=== PATIENT | female | born 1965 | race Caucasian/White ===

== ENCOUNTER 2016-08-03 08:48 | Inpatient (IN) | payer MEDICARE, OTHER ==
--- NOTE | ~2016-08-03 | DS ---
Unit #: [id number] #: [id number] Patient: TANGELA AUSTIN [id number] [address] [place], [place] [address] [id number] MR#: [id number] NAME: TANGELA AUSTIN ROOM: 453 Age: 50 Sex: F Admission Date: 08/03/2016 : 1965 Discharge Date: 08/06/2016 Attending Physician: Nayeli Penny M.D. Primary Care Physician: Gaston Good M.D. DISCHARGE SUMMARY CHIEF COMPLAINT Right ankle pain. HISTORY OF PRESENT ILLNESS The patient is a 50-year-old female with a history of Kristie's granulomatosis. She fell two years ago while standing and sustained an open right ankle fracture. She was initially treated at [facility] with external fixation, joint debridement, eventual open reduction internal fixation and eventual hardware removal. She has now developed a valgus deformity with end stage ankle arthritis. The patient is narcotic dependent and uses hydrocodone 10 mg p.o. q.i.d. She has a son who is a heroin addict. Radiographs show end stage arthritis with 20 degrees of tibiotalar valgus. She is, therefore, to undergo right ankle fusion, screw removal. HOSPITAL COURSE The patient was taken to the operating room on the date of admission where she underwent right ankle fusion. There were no operative complications. Postoperatively, the patient had significant difficulty with pain control. The patient could not maintain her oxygen saturation but yet was still depending IV Dilaudid which we gave her very sparingly. Dressing was changed on the second postoperative day. She was seen by physical therapy on a daily basis and instructed on how to remain non-weight bearing on her affected side. She was concerned that she was not going to be able to go home. We, therefore, arranged for her to be placed in rehab. FINAL DIAGNOSES 1. Right ankle posttraumatic degenerative arthritis. 2. Kristie's granulomatosis. 3. Narcotic dependency. DISPOSITION/RECOMMENDATIONS 1. The patient is discharged to rehab. She will continue occupational and physical therapy. She will remain strictly non-weight bearing on the right leg for a total of three months. 2. Keep the right leg dressing clean, dry and intact. There is no need to change the dressing unless directed by Dr. Penny. If she wishes to change the dressing, please call Dr. Penny at [phone] to get instructions. 3. Continue ice and elevation of the right leg. DISCHARGE MEDICATIONS 1. Ventolin one puff q.4 hours p.r.n. shortness of breath. 2. Arixtra 7.5 mg p.o. daily. Unit #: [id number] #: [id number] Patient: TANGELA AUSITN 3. Gabapentin 600 mg p.o. t.i.d. 4. Celexa 20 mg p.o. q. h.s. 5. Cymbalta 60 mg p.o. q. h.s. 6. Phenergan 25 mg p.o. q.6 hours p.r.n. nausea. 7. Ambien 10 mg p.o. q. h.s. p.r.n. insomnia. 8. Percocet 10/325, one or two p.o. q.6 hours p.r.n. pain. 9. Protonix 40 mg p.o. q. h.s. 10. Calcium, two tabs p.o. q. h.s. 11. Potassium chloride 20 mEq p.o. q. h.s. 12. Tizanidine 8 mg p.o. q.i.d. 13. Norvasc 5 mg p.o. q. h.s. 14. Metoprolol 50 mg p.o. q. h.s. 15. Sumatriptan 6 mg p.o. p.r.n. migraine headache. 16. Iron sulfate, one tab p.o. q. h.s. Follow up in my office in 10 to 14 days. Call [phone] to confirm the appointment. Dictated byGabriela Tam/radha TD: 08/05/2016 08:45 JOB #: [id number] DISCHARGE SUMMARY X Viji Penny MD X DISCHARGE SUMMARY
--- NOTE | ~2016-08-03 | BMI ---
[facility] [place] Nutrition Therapy DATE: 08/04/16 Patient: TANGELA LUXLEY Physician: BELLE Address: [id number] [place] [address] Room/Bed: [address] [place] [address], Zip: [place] [address] Admit Date: 08/03/16 Date of : [birth year] Height: 5 3 Weight: 231 104.8 HIGH BMI NOTE: ANTHROPOMETRICS: HT: 63" WT: 104.8 KG BMI: 40.9 INTERVENTION: 1. REGULAR DIET RECOMMENDATIONS: 1. ADD HEART HEALTHY DIET RESTRICTION TO PROMOTE GRADUAL WEIGHT LOSS TOWARDS IBW. Respectfully, VIOLETTE GREENE RD, LD [facility] cc: client file
--- NOTE | ~2016-08-03 | HP ---
Unit #: [id number] #: [id number] Patient: TANGELA AUSTIN [id number] [address] [address] [id number] O MR#: [id number] NAME: TANGELA AUSTIN ROOM: Age: Sex: F Admission Date: 08/03/2016 : 1965 Attending Physician: Nayeli Penny M.D. Primary Care Physician: Gaston Good M.D. HISTORY AND PHYSICAL DATE OF ADMISSION 08/03/2016 CHIEF COMPLAINT Right ankle pain. HISTORY OF PRESENT ILLNESS This 50-year-old female with a history of Kristie granulomatosis fell two years ago while standing and she sustained an open right ankle fracture. She was treated at [facility] with external fixation, joint debridement, eventual open reduction internal fixation and hardware removal. The patient continues to have significant pain in the right foot and ankle. She has a valgus deformity. She has not responded to bracing and a cane. She uses hydrocodone 10 mg p.o. q.i.d. Radiographs show end-stage arthritis with 20 degrees of heel valgus. She is therefore to undergo right ankle fusion, screw removal and use of Augment platelet derived growth factor due to the fact that she cannot have proximal tibial bone graft. PAST MEDICAL HISTORY Remarkable for: 1. Kristie granulomatosis. 2. Anemia. 3. Anxiety. 4. Hypertension. 5. Cataracts. 6. Chronic deep venous thrombosis requiring Arixtra. 7. Chronic obstructive pulmonary disease. 8. Lumbar degenerative disk disease. 9. Depression. 10. Esophageal reflux. 11. Gout. 12. Hypercholesterolemia. 13. Insomnia. 14. Migraine headaches. 15. Possible rheumatoid arthritis. 16. Sleep apnea. PAST SURGICAL HISTORY 1. Cataract excision. 2. . 3. Cholecystectomy. 4. Gastric bypass. 5. Hand surgery. Unit #: [id number] #: [id number] Patient: TANGELA AUSTIN 6. Herniorrhaphy. 7. Lung surgery. 8. Nephrectomy. 9. Partial lung resection. 10. Shoulder surgery. 11. Tonsillectomy. 12. Tubal ligation. HOME MEDICATIONS 1. Amlodipine. 2. Aspirin. 3. Calcium. 4. Citalopram. 5. Cyclobenzaprine. 6. Duloxetine. 7. Iron sulfate. 8. Gabapentin. 9. Hydrocodone. 10. Metoprolol. 11. Multivitamins. 12. Pantoprazole. 13. Potassium chloride. 14. Promethazine. 15. Sumatriptan. 16. Tizanidine. 17. Ambien. ALLERGIES 1. Zofran. 2. Demerol. 3. Toradol. SOCIAL HISTORY The patient is a [id number]-jnhd smoker. She uses alcohol socially. FAMILY HISTORY Arthritis, stroke, hypertension, heart disease, Parkinson's, TB, breast cancer, colon cancer. PHYSICAL EXAMINATION GENERAL: This is an obese female in no acute distress. HEENT: Pharynx is clear. NECK: Supple without masses. HEART: Regular sinus rhythm without murmurs or gallops. LUNGS: Clear. ABDOMEN: Soft and nontender without masses or organomegaly. GAIT: The patient walks with a 4-prong cane. She wears slip-on shoes. RIGHT FOOT: Shows an intact arch but significant hindfoot valgus measuring 15 degrees. Right ankle dorsiflexion 5 degrees, plantar flexion 40 degrees. Subtalar motion is normal. First MTP joint motion is normal. Pulses are intact. Sensation is normal. Motor exam is normal. The patient is maximally tender over the anterior aspect of the tibiotalar joint. She has a well-healed transverse incision over the medial malleolus and a lateral longitudinal incision over the fibula. DIAGNOSTIC STUDIES IMAGING: Standing x-rays of the right ankle show 20 degrees of talar valgus with respect to the longitudinal axis of the tibia. The tibial Unit #: [id number] #: [id number] Patient: TANGELA AUSTIN is in marked valgus. There are two broken screws in the distal tibia which are oriented horizontal and parallel to the ankle joint line. There is a nonunion of the fibular shaft 13 cm above the level of the ankle joint. There is posterior subluxation of the talus under the tibia measuring 14 mm. ADMISSION DIAGNOSIS 1. Right ankle post-traumatic degenerative arthritis. 2. Right ankle valgus. 3. Right distal fibular shaft nonunion. 4. Retained broken right distal tibial screws. 5. Kristie granulomatosis. PLAN The patient has failed conservative care she will therefore undergo removal of hardware, ankle fusion, use of Augment bone graft and realignment of her hindfoot. This procedure was described along with the risks of bleeding, infection, nerve damage, need for further surgery in the future, prolonged recovery time, deep venous thrombosis, pulmonary embolism, anesthetic complications, nonunion, malunion. The patient is also advised she needs to stop smoking as it will complicate her healing process, possibly produce a nonunion or wound healing problems. She understands and states she will comply. Dictated by Nayeli Penny M.D. NIKITA/ming TD: 08/02/2016 18:32 JOB #: [id number] HISTORY AND PHYSICAL X Viji Penny MD HISTORY AND PHYSICAL
--- NOTE | ~2016-08-03 | OR ---
Unit #: [id number] #: [id number] Patient: TANGELA AUSTIN [id number] [address] [place], [place] [address] [id number] MR#: [id number] NAME: TANGELA AUSTIN. ROOM: [facility] Date of Procedure: 08/03/2016 Admission Date: 08/03/2016 Surgeon: Nayeli Penny M.D. : 1965 Attending Physician: Nayeli Penny M.D. Primary Care Physician: Gaston Good M.D. OPERATIVE REPORT PREOPERATIVE DIAGNOSIS Right ankle posttraumatic arthritis. POSTOPERATIVE DIAGNOSIS Right ankle posttraumatic arthritis. PROCEDURE PERFORMED Right ankle fusion (41560). LICENSED CHEMICAL SPRAY TECHNICIAN Amnauel. ANESTHESIA Popliteal saphenous block and general. INDICATIONS FOR SURGERY The patient is a 50-year-old female with a history of Kristie's granulomatosis, who fell 2 years ago, sustaining an open fracture of the right ankle. She was treated with open reduction and internal fixation in [facility] and now has developed significant valgus deformity with chronic pain. Radiographs show tibiotalar valgus with syndesmotic instability. She is therefore to undergo ankle fusion. She has complete joint space loss of the tibiotalar joint with marked tibiotalar valgus. DESCRIPTION OF PROCEDURE The patient was taken to the operating room following popliteal saphenous block. She was placed in a supine position. General anesthetic was induced. The right ankle was identified as the correct operative location during the time-out procedure. The IV antibiotic protocol was followed. The right leg was prepped and draped in the usual sterile fashion. The leg was exsanguinated with an Esmarch bandage and the tourniquet was inflated to 300 mmHg. An anterolateral longitudinal incision was made over the ankle, measuring 7 cm. Subcutaneous tissue was divided. The superficial peroneal nerve was identified and preserved. The extensor retinaculum was opened. The extensor tendons and musculature were retracted medially. The joint was exposed with subperiosteal dissection. The joint was distracted with a lamina cloth spreader screen printing. The power osteotome, curved curettes, and rongeurs were utilized to remove the articular cartilage from both sides of the ankle joint to include the tibiotalar joint and talofibular joint. Unit #: [id number] #: [id number] Patient: TANGELA AUSTIN Additionally, syndesmosis, which was unstable, was also denuded of all articular cartilage and the underlying subchondral bone was feathered with the power osteotome. 3 mL of Augment platelet-derived growth factor granules were then placed into the joint and also into the syndesmosis. The joint was positioned appropriately and then fixated with 3 OrthoHelix 7.0 mm diameter cannulated screws. Two screws were placed from proximal medial to distal lateral. The third screw was placed across the fibula into the talus to achieve syndesmotic instability as well as ankle fusion. Excellent fixation was achieved. Care was taken to ensure the ankle was in neutral position and was in neutral heel valgus. The tourniquet was released with a total tourniquet time of 55 minutes. Joint capsule was closed with 2-0 Vicryl. The extensor retinaculum was closed with 2-0 Vicryl. Subcutaneous tissue was closed with 3-0 Vicryl. Skin was closed with 3-0 nylon horizontal mattress sutures. Xeroform gauze dressing, sponges, and a posterior fiberglass splint were applied. The patient was then transported to the recovery room in stable condition. ESTIMATED BLOOD LOSS Minimal. COMPLICATIONS None. SPECIMENS None. TOURNIQUET TIME 55 minutes. Dictated byGabriela Tam/tai TD: 08/04/2016 00:52 JOB #: [id number] OPERATIVE REPORT X Viji Penny MD X PROCEDURE OPERATIVE NOTE
[~2016-08-03 08:48] MED LIST: ACETAMINOPHEN PO; ADVAIR 1001 DISK W/D PO; ADVAIR INH; ALBUTEROL MININEB NEB; ALBUTEROL17 GM; ALBUTEROL17 GM INH; ALBUTEROL17 GM PO; ALBUTEROL20 ml INH; ALLOPURINOL300 MG PO; ALPRAZOLAM PO; ALPRAZOLAM0.25 MG PO; AMBIEN PO; AMBIEN10 MG PO; AMITRIPTYLINE H50 MG PO; AMITRIPTYLINE100 MG PO; AMITRYPTYLINE; AMITRYPTYLINE PO; AMLODIPINE BESYL5 MG PO; AMOXICILLIN PO; AMOXICILLIN500 M1 PO; ANTIVERT; ARIXTRA2.5 MG/0.1 SQ; ARIXTRA5 MG/0.4 M SQ; ARIXTRA7.5 MG/0.6 SQ; ARTHROTEC 501 TAB.EC PO; ASPIRIN EC81 M1 PO; ASPIRIN PO; ASPIRIN81 M2 PO; ASPIRIN81 MG PO; ATIVAN; ATIVAN PO; ATROVENT; ATROVENT HFA12.9 GM INH; AUGMENTIN PO; BACLOFEN PO; BACLOFEN10 MG PO; BACTRIM 400-801 TA1 PO; BACTRIM DS TABL1 TA1 PO; BENADRYL; BENADRYL PO; BENICAR PO; BENTYL PO; BENTYL20 MG PO; BENZONATATE PO; BUSPAR PO; BUSPAR30 MG PO; BUSPAR5 M1 PO; CALCIUM + D 6001 TA1 PO; CALCIUM1 TAB.CHEW PO; CARAFATE PO; CEFTIN; CELEXA PO; CELEXA20 MG PO; CIPRO PO; CITALOPRAM HBR10 MG PO; CITALOPRAM HBR40 MG PO; CLONAZEPAM0.5 MG PO; COLCRYS0.6 MG PO; COMBIVENT INH14.7 GM INH; COMPAZINE5 MG PO; COUMADIN; COUMADIN PO; COUMADIN10 MG PO; COUMADIN2.5 MG PO; COUMADIN7.5 MG PO; CYCLOPHOSPHAMID50 M1 PO; CYCLOPHOSPHAMID50 MG PO; CYMBALTA PO; CYTOXAN PO; CYTOXAN50 MG PO; CYTOXAN500 MG PO; DELTASONE20 MG PO; DENAVIR TOP; DEXFOL PO; DIAZEPAM PO; DIFLUCAN; DIFLUCAN100 MG PO; DILAUDID2 MG PO; DOXYCYCLINE HYC20 MG PO; DULOXETINE HCL60 MG PO; DUONEB 2.5-0.5 M3 ML NEB; ENBREL50 MG/ML INJ; FERGON240 ( 27 ) PO; FERRO-TIME325 MG PO; FLAGYL PO; FLEXERIL PO; FLONASE 0.05% N16 G1; FOLIC ACID; FOLIC ACID PO; FOSAMAX PO; GABAPENTIN300 M2 PO; GABAPENTIN300 MG PO; GABAPENTIN600 MG PO; HCTZ PO; HYDROCODON-ACE1 EAC1 PO; HYDROCODON-ACE1 EAC5 PO; HYDROCODON-ACE1 EAC7 PO; HYDROCODON-ACE1 EAC9 PO; HYDROCODONE-APA1 T33; HYDROCODONE-APA1 T33 PO; HYDROCODONE-APA1 T54 PO; HYDROCODONE-APA1 T58 PO; IBUPROFEN800 MG PO; IMITREX; IMITREX PO; IMITREX4 MG/0.5 M SQ; IMITREX6 MG/0.5 M SQ; IMODIUM2 MG PO; ISONIAZID300 MG PO; K-DUR10 MEQ PO; K-DUR20 ME1 PO; KCL PO; KEFLEX500 M1 PO; LASIX; LASIX PO; LEVAQUIN PO; LEVAQUIN750 M1 PO; LEVOTHYROXINE; LEXAPRO PO; LODINE PO; LOPRESSOR; LOPRESSOR PO; LORTAB 7.51 TAB 7.5/ PO; LORTAB 7.51 TAB PO; LOTRIMIN 1% CR30 GM; LOVENOX; LOVENOX100 MG/ML SUBQ; LOVENOX40 MG/0.4 INJ; LOVENOX80 MG/0.8 INJ; MAALOX SUSPENSI30 ML PO; MEDROL PO; METHOTREXATE2.5 MG; METHOTREXATE2.5 MG PO; METOPROLOL ER PO; METOPROLOL SUCC50 MG PO; METOPROLOL TAR25 MG PO; MICRO-K PO; MIRAPEX; MONODOX100 MG PO; MOTRIN600 M2 PO; MUCINEX DM TABL1 BOX PO; MUCINEX PO; NEURONTIN; NEURONTIN PO; NEURONTIN300 MG PO; NEURONTIN600 MG PO; NEXIUM PO; NICODERM C1 PATCH .3 TD; NITROFURANTOIN100 M3 PO; NITROGLYGERIN0.4 MG SL; NITROGYLCERIN SUBLINGUAL; NITROSTAT0.4 MG SL; NORCO 10/325 TA1 TAB PO; NORCO 10/3251 TAB PO; NORVASC; NORVASC PO; NORVASC10 MG; NYSTATIN5 ML PO; OXYCODONE HCL10 MG PO; OYST CAL D; OYST CAL D PO; PAXIL PO; PEN-VEE K PO; PENICILLIN VK PO; PERCOCET 10/3251 TAB PO; PHENERGAN DM1 ML PO; PHENERGAN PO; PHENERGAN W/CO120 ML PO; PHENERGAN25 M1; PHENERGAN25 M1 PO; PHENERGAN25 MG PO; PREDNISONE; PREDNISONE PO; PREDNISONE10 MG PO; PREDNISONE5 M1 PO; PREDNISONE50 MG PO; PRILOSEC; PROCTOFOAM-HC10 G1 MC; PROMETHAZINE D118 ML PO; PROTONIX; PROTONIX PO; PROTONIX20 MG PO; ROBAXIN500 MG PO; SUMATRIPTA6 MG/0.53; SYMBICORT 16010.2 GM INH; TAMIFLU45 MG PO; TEMAZEPAM PO; TIZANIDINE HCL4 M1 PO; TOPAMAX PO; TOPAMAX15 MG; TOPAMAX15 MG PO; TOPAMAX50 MG PO; TOPROL XL 50 MG50 MG PO; TOPROL XL PO; TYLENOL325 M1 PO; TYLOX 5/500 CAP1 CAP PO; VIBRAMYCIN100 M1 PO; VICODIN 5/1 TAB 5/50 PO; VICODIN PO; VIT B-12 PO; VITAMIN D 4001 UDTAB PO; VOLTAREN50 MG PO; XANAX0.5 M1 PO; XANAX1 MG PO; XARELTO10 MG PO; ZANAFLEX; ZANAFLEX PO; ZANAFLEX4 M1 PO; ZITHROMAX PO; ZOLOFT; ZOLOFT PO; ZOLPIDEM TARTRA10 MG PO; ZYLOPRIM PO; ZYLOPRIM100 MG PO; ZYVOX600 MG PO; [UNRECOGNIZED DRUG - REMARK]
[2016-08-03 10:27] LABS: HEMATOCRIT 35.4 % (35.0-45.0); HEMOGLOBIN 11.3 gm/dL (12.0-16.0); MEAN CELL VOLUME 80.5 FL (83-96); MEAN CORPUSCULAR HEMOGLOBIN 25.6 PG (28-34); MEAN CORPUSCULAR HGB CONC 31.8 g/dL (30-36); MEAN PLATELET VOLUME 8.1 FL (6.5-11.5); RED BLOOD COUNT 4.39 X10e (3.90-5.30); RED CELL DISTRIBUTION WIDTH 16.6 % (11.0-15.5); WHITE BLOOD COUNT 14.4 X10e3 (4.0-10.5)
[2016-08-03 11:13] LABS: BLOOD UREA NITROGEN 20 mg/dL (9-23); BUN/CREATININE RATIO 28.57; CALCIUM SERUM 8.8 mg/dL (8.4-10.2); CARBON DIOXIDE 27 mmol/L (22-31); CHLORIDE 101 mmol/L (100-111); CREATININE SERUM 0.7 mg/dL (0.6-1.4); GLOM FILT RATE Estimated ABOVE60 mL/min (>60); GLUCOSE FASTING 92 mg/dL (70-110); SODIUM 136 mmol/L (135-145)
[2016-08-08] MEDS ORDERED: PERCOCET 10/31 UDTA1 (14:24)
[2016-08-09] MEDS ORDERED: KEFLEX500 MG (22:50)
== END 2016-08-06 10:48 | DRG 493 ==
LOC: CSUR 08:48 → CPACUOF 13:15 → C4B 14:30
PROVIDERS: Orthopaedic Surgery
PROC: 0SGF04Z Fusion of Right Ankle Joint with Internal Fixation Device, Open Approach (ICD-10-PCS; principal; 2016-08-03 11:00)
PROC: 0SHF04Z Insertion of Internal Fixation Device into Right Ankle Joint, Open Approach (ICD-10-PCS; 2016-08-03 11:00)
DX: M19.171 Post-traumatic osteoarthritis, right ankle and foot (principal); M31.30 Wegener's granulomatosis without renal involvement; Z68.41 Body mass index [BMI] 40.0-44.9, adult; F17.210 Nicotine dependence, cigarettes, uncomplicated; K21.9 Gastro-esophageal reflux disease without esophagitis; N39.3 Stress incontinence (female) (male); E66.01 Morbid (severe) obesity due to excess calories; J44.9 Chronic obstructive pulmonary disease, unspecified; I10 Essential (primary) hypertension; Z98.49 Cataract extraction status, unspecified eye; Z86.718 Personal history of other venous thrombosis and embolism; M51.36 Other intervertebral disc degeneration, lumbar region; E78.00 Pure hypercholesterolemia, unspecified; G47.00 Insomnia, unspecified; G43.909 Migraine, unspecified, not intractable, without status migrainosus; Z90.49 Acquired absence of other specified parts of digestive tract; Z79.4 Long term (current) use of insulin; Z82.61 Family history of arthritis; Z82.49 Family history of ischemic heart disease and other diseases of the circulatory system; Z80.3 Family history of malignant neoplasm of breast; Z80.0 Family history of malignant neoplasm of digestive organs; S82.401A Unspecified fracture of shaft of right fibula, initial encounter for closed fracture
CPT/HCPCS: 80048; 85027; 94640; 94760; 97110; 97116; 97162; C1713; G8978-GP; G8979-GP; J0690; J1100; J1170; J1642; J1652; J2250; J2550; J2795; J3010

== ENCOUNTER 2016-08-08 15:43 | Emergency (ER) | payer MEDICARE, OTHER ==
--- NOTE | ~2016-08-08 | CR71 ---
[facility]. [facility] A Service of [facility] RADIOLOGY TEXT RESULTS PATIENT: TANGELA AUSTIN LOCATION: SED : 65 UNIT #: [id number] AGE: [address]: Sarbjit Martinez MD SEX: F ORDER DR: [id number] [address] [address] [id number] E MR#: [id number] Acc #: [id number] NAME: TANGELA AUSTIN : 1965 SEX: F STUDY DATE/TIME: 08/08/2016 16:17 UNIT: SED ROOM: STUDY DESCRIPTION: CR Chest Single View Attending Physician: Sarbjit Martinez M.D. Ordering Physician: Sarbjit Martinez M.D. Primary Care Physician: Gaston Good M.D. MEDICAL IMAGING REPORT This report is preliminary unless electronic signature is present. EXAM Portable chest, 08/08/2016 HISTORY Chest pain x1 week. COMPARISON 07/23/2016 FINDINGS Portable view of the chest demonstrates moderate lung volumes satisfactory technique. No infiltrates or effusions. Heart, mediastinum and great vessels unremarkable. Indwelling venous access port noted over the right chest distal tip near the cavoatrial junction. Overall no acute findings. Dictated by... Vj Gardiner M.D. THIS IS AN ELECTRONICALLY VERIFIED REPORT Vj Gardiner M.D. at 08/09/2016 5:02 PM DEDRICK/kong TD: 08/09/2016 02:36 JOB #: [id number] MEDICAL IMAGING REPORT
[2016-08-08 15:03] LABS: URINE SOURCE CLEAN CATCH
[2016-08-08 15:06] LABS: URINE APPEARANCE CLEAR; URINE BILIRUBIN NEG (NEG); URINE BLOOD NEG (NEG); URINE COLOR YELLOW; URINE GLUCOSE NEG (NORM); URINE KETONE TRACE (NEG); URINE LEUKOCYTE ESTERASE 1+ (NEG); URINE NITRATE NEG (NEG); URINE PH 5.5 (5-8); URINE PROTEIN NEG (NEG); URINE SPECIFIC GRAVITY 1.025 (1.003-1.035); URINE UROBILINOGEN 0.2 MG/DL (NORM)
[2016-08-08 15:13] LABS: MICRO INDICATED? YES
[2016-08-08 15:16] LABS: URINE RBC NEG /[HPF] (0-2)
[2016-08-08 15:17] LABS: URINE BACTERIA NEG (NEG); URINE MUCUS PRESENT; URINE SQUAMOUS EPITHELIAL CELL MANY /[HPF]
[~2016-08-08 15:43] MED LIST changes: +PERCOCET 10/31 UDTA1
[2016-08-08 16:20] LABS: BASOPHIL# 0.1 X10e3 (0-0.3); BASOPHIL% 0.9 % (0-2.5); EOSINOPHIL# 0.3 X10e3 (0-0.7); EOSINOPHIL% 3.2 % (0.0-7.0); HEMATOCRIT 28.1 % (35.0-45.0); LYMPHOCYTE# 1.2 X10e3 (1.0-3.5); LYMPHOCYTE% 13.3 % (17.0-45.0); MEAN CELL VOLUME 81.6 FL (83-96); MEAN CORPUSCULAR HEMOGLOBIN 26.1 PG (28-34); MEAN CORPUSCULAR HGB CONC 31.9 g/dL (30-36); MONOCYTE# 0.7 X10e3 (0-1.0); MONOCYTE% 7.6 % (3.0-12.0); NEUTROPHIL# 6.5 X10e3 (1.5-7.1); PLATELET COUNT 130 X10e3 (140-420); RED BLOOD COUNT 3.44 X10e (3.90-5.30); WHITE BLOOD COUNT 8.7 X10e3 (4.0-10.5)
[2016-08-08 16:28] LABS: DIFF IND NO
[2016-08-08 16:28] LABS: POC - CKMB 44.7 ng/mL (0.0-7.9); POC - MYOGLOBIN >500.0 ng/mL (0.0-169.0); POC - TROPONIN <0.05 ng/mL (<=0.05)
[2016-08-08 16:43] LABS: BUN/CREATININE RATIO 19.09; CALCIUM SERUM 8.3 mg/dL (8.4-10.2); CREATININE SERUM 1.1 mg/dL (0.6-1.4); GLOM FILT RATE Estimated 55.9 mL/min (>60); POTASSIUM 4.6 mmol/L (3.5-5.1)
[2016-08-08] MEDS ORDERED: KEFLEX (17:22)
[2016-08-09] MEDS ORDERED: KEFLEX500 MG (22:50)
== END 2016-08-08 17:21 | disposition home or self-care (01) ==
LOC: SED 15:43
PROVIDERS: Emergency Medicine
DX: N39.0 Urinary tract infection, site not specified (principal); R07.9 Chest pain, unspecified; R53.1 Weakness; J44.9 Chronic obstructive pulmonary disease, unspecified; F41.9 Anxiety disorder, unspecified; F17.200 Nicotine dependence, unspecified, uncomplicated; Z79.899 Other long term (current) drug therapy; Z88.5 Allergy status to narcotic agent; Z88.8 Allergy status to other drugs, medicaments and biological substances; Z91.018 Allergy to other foods
CPT/HCPCS: 36415; 71010; 80048; 81003; 82553; 83874; 84484; 85025; 96360; 99284; J1642

== ENCOUNTER 2016-08-09 23:47 | Emergency (ER) | payer MEDICARE, OTHER ==
[~2016-08-09 23:47] MED LIST changes: +KEFLEX; +KEFLEX500 MG
== END 2016-08-10 00:57 | disposition home or self-care (01) ==
LOC: SED 23:47
DX: G89.28 Other chronic postprocedural pain (principal); M79.671 Pain in right foot; F17.210 Nicotine dependence, cigarettes, uncomplicated; Z98.890 Other specified postprocedural states; Z88.5 Allergy status to narcotic agent; Z88.8 Allergy status to other drugs, medicaments and biological substances; Z91.030 Bee allergy status; Z79.899 Other long term (current) drug therapy
CPT/HCPCS: 99282

== ENCOUNTER 2016-08-13 16:45 | Emergency (ER) | payer MEDICARE, OTHER ==
[2016-08-13 15:46] LABS: BASOPHIL% 0.6 % (0-2.5); EOSINOPHIL# 0.2 X10e3 (0-0.7); EOSINOPHIL% 3.6 % (0.0-7.0); HEMATOCRIT 29.4 % (35.0-45.0); HEMOGLOBIN 9.3 gm/dL (12.0-16.0); LYMPHOCYTE# 0.7 X10e3 (1.0-3.5); LYMPHOCYTE% 9.8 % (17.0-45.0); MEAN CORPUSCULAR HEMOGLOBIN 25.6 PG (28-34); MEAN CORPUSCULAR HGB CONC 31.6 g/dL (30-36); MEAN PLATELET VOLUME 7.8 FL (6.5-11.5); MONOCYTE# 0.9 X10e3 (0-1.0); MONOCYTE% 12.5 % (3.0-12.0); NEUTROPHIL% 73.5 % (40-75); PLATELET COUNT 270 X10e3 (140-420); RED BLOOD COUNT 3.63 X10e (3.90-5.30); RED CELL DISTRIBUTION WIDTH 16.8 % (11.0-15.5); WHITE BLOOD COUNT 6.8 X10e3 (4.0-10.5)
[2016-08-13 15:53] LABS: DIFF IND NO
[2016-08-13 16:07] LABS: AMPHETAMINE NEG (NEG); BARBITURATES NEG (NEG); BENZODIAZEPINES POS (NEG); COCAINE NEG (NEG); MARIJUANA NEG (NEG); OPIATES POS (NEG); TRICYCLIC ANTIDEPRESSANTS NEG (NEG); U METHADONE NEG (NEG)
[2016-08-13 16:07] LABS: ALKALINE PHOSPHATASE 107 U/L (32-92); ALT (SGPT) 32 U/L (10-40); AST (SGOT) 22 U/L (10-42); BILIRUBIN,TOTAL 0.3 mg/dL (0.2-2.0); BLOOD UREA NITROGEN 13 mg/dL (9-23); BUN/CREATININE RATIO 18.57; CALCIUM SERUM 8.8 mg/dL (8.4-10.2); CARBON DIOXIDE 27 mmol/L (22-31); CHLORIDE 101 mmol/L (100-111); CREATININE SERUM 0.7 mg/dL (0.6-1.4); GLOM FILT RATE Estimated ABOVE60 mL/min (>60); GLUCOSE FASTING 113 mg/dL (70-110); POTASSIUM 3.9 mmol/L (3.5-5.1); PROTEIN TOTAL SERUM 6.3 g/dL (6.0-8.3); SALICYLATE <4.0 mg/dL; SODIUM 136 mmol/L (135-145)
[2016-08-13 16:08] LABS: ACETAMINOPHEN <10 ug/mL
== END 2016-08-13 20:48 | disposition home or self-care (01) ==
LOC: SED 16:45
PROVIDERS: Emergency Medicine
DX: T42.8X1A Poisoning by antiparkinsonism drugs and other central muscle-tone depressants, accidental (unintentional), initial encounter (principal); T42.6X1A Poisoning by other antiepileptic and sedative-hypnotic drugs, accidental (unintentional), initial encounter; E78.5 Hyperlipidemia, unspecified; I10 Essential (primary) hypertension; J44.9 Chronic obstructive pulmonary disease, unspecified; F17.210 Nicotine dependence, cigarettes, uncomplicated; Z88.5 Allergy status to narcotic agent; Z79.899 Other long term (current) drug therapy
CPT/HCPCS: 36415; 51702; 80053; 80307; 85025; 94640; 96374; 99284; G0480; J1642

== ENCOUNTER 2016-10-28 01:31 | Emergency (ER) | payer OTHER ==
--- NOTE | ~2016-10-28 | EKG ---
PATIENT: TANGELA AUSTIN UNIT #: [id number] Ventricular Rate: 83 BPM Atrial Rate: 83 BPM P-R Interval: 130 ms QRS Duration: 76 ms Q-T Interval: 368 ms QTC Calculation(Bezet): 432 ms P [place]: 24 degrees Calculated R [place]: 18 degrees Calculated T [place]: 50 degrees Diagnosis Line: Normal sinus rhythm Diagnosis Line: Normal ECG Diagnosis Line: When compared with ECG of 23-JUL-2016 10:01, Diagnosis Line: No significant change was found Diagnosis Line: Confirmed by MARCUS JADE MD ([id number]) on 10/28/2016 Diagnosis Line: 5:25:38 PM INTERPRETING MD: YASMANY FRENCH
--- NOTE | ~2016-10-28 | CT16 ---
[facility] A Service of [facility] RADIOLOGY TEXT RESULTS PATIENT: TANGELA AUSTIN LOCATION: SED : 65 UNIT #: [id number] AGE: [address]: Khang Franklin MD SEX: F ORDER DR: [id number] [place] [id number] E MR#: [id number] Acc #: [id number] NAME: TANGELA AUSTIN : 1965 SEX: F STUDY DATE/TIME: 10/28/2016 03:40 UNIT: SED ROOM: STUDY DESCRIPTION: CT Angio Chest for PE Attending Physician: Khang Franklin M.D. Ordering Physician: Khang Franklin M.D. Primary Care Physician: Gaston Good M.D. MEDICAL IMAGING REPORT This report is preliminary unless electronic signature is present. EXAM Chest CTA 10/28 at 03:40 INDICATIONS Left side chest pain. Fall yesterday at 5 o'clock. Elevated D-dimer this morning. TECHNIQUE Axial images were obtained through the chest following IV contrast administration. 3-D reformats were obtained. Comparison made with 05/18/2016. This CT exam was performed with one or more of the following radiation dose reduction techniques: automatic exposure control, adjustment of mA and/or kV according to patient size, and iterative reconstruction. FINDINGS There is no pulmonary embolism or aortic dissection. There is no pleural or pericardial effusion. There is no adenopathy. There is some mild left upper lobe fibrosis extending in the mediastinum narrowing a left upper lobe pulmonary arterial branch proximally. This is unchanged. Presumed area of fibrotic scarring in the left apex is stable. Postoperative changes noted in the right lower lobe. No clearly acute infiltrates are identified. Old bilateral rib fractures are again seen. Upper abdomen shows changes of cholecystectomy. IMPRESSION 1. No pulmonary embolism or aortic dissection. 2. No active disease in the chest. 3. Chronic changes in the lungs are stable from 05/18/2016. 4. Please note that there are at least a [address] scans in our database since 2005. 1. [facility] A Service of [facility] RADIOLOGY TEXT RESULTS PATIENT: TANGELA AUSTIN [place] [facility] [place] [birth year] [place]IT #: [id number] AGE: [address]: Khang Franklin MD SEX: F ORDER DR: Dictated by... Gaston Mott Jr., M.D. THIS IS AN ELECTRONICALLY VERIFIED REPORT Gaston Mott Jr., M.D. at 10/28/2016 10:13 PM LEANDER/gilmar TD: 10/28/2016 06:30 JOB #: [id number] MEDICAL IMAGING REPORT Page 1 of 1
--- NOTE | ~2016-10-28 | CT71 ---
[facility] A Service [facility] RADIOLOGY TEXT RESULTS PATIENT: TANGELA AUSTIN LOCATION: SED : [birth year] UNIT #: [id number] AGE: [address]: Khang Franklin MD SEX: F ORDER DR: [id number] [place] [address] [id number] E MR#: [id number] Acc #: [id number] NAME: TANGELA AUSTIN : 1965 SEX: F STUDY DATE/TIME: 10/28/2016 02:03 UNIT: SED ROOM: STUDY DESCRIPTION: CT Head Wo Contrast Attending Physician: Khang Franklin M.D. Ordering Physician: Khang Franklin M.D. Primary Care Physician: Gaston Good M.D. MEDICAL IMAGING REPORT This report is preliminary unless electronic signature is present. EXAM Head CT, 10/28 at 02:03 INDICATIONS Patient on blood thinners. Patient fell today hitting top of head. Patient now has headache and neck pain. Injury at 5:00 last night. FINDINGS Axial images were obtained from the base to the vertex without contrast. Comparison made with 01/16/2015. This CT exam was performed with one or more of the following radiation dose reduction techniques: Automatic exposure control, adjustment of mA and/or kV according to patient size, and iterative reconstruction. Ventricular size and configuration are within normal limits. There is no acute infarct or hemorrhage. There are no new masses. No skull fracture. There is debris in the right sphenoid sinus and a left posterior ethmoid air cell, compatible with mild sinusitis. A presumed thin meningioma which is partially calcified in the left frontal region is not significantly changed. IMPRESSION 1. No acute intracranial abnormality. No skull fracture. 2. Stable thin meningioma in the left frontal region. 3. Please note that this patient has at least [address] scans in our database since 2005. Dictated by... Gaston Mott Jr., M.D. THIS IS AN ELECTRONICALLY VERIFIED REPORT [facility] A Service of [facility] RADIOLOGY TEXT RESULTS PATIENT: TANGELA AUSTIN [place] [facility] [place] 65 UNIT #: [id number] AGE: [address]: Khang Franklin MD SEX: F ORDER DR: Gaston Mott Jr., M.D. at 10/28/2016 6:03 AM LEANDER/jenna TD: 10/28/2016 04:10 JOB #: [id number] MEDICAL IMAGING REPORT Page 1 of 1
--- NOTE | ~2016-10-28 | CT52 ---
[facility] A Service of [facility] RADIOLOGY TEXT RESULTS PATIENT: TANGELA AUSTIN LOCATION: SED : [birth year] UNIT #: [id number] AGE: [address]: Khang Franklin MD SEX: F ORDER DR: [id number] [place] [address] [id number] E MR#: [id number] Acc #: [id number] NAME: TANGELA AUSTIN : 1965 SEX: F STUDY DATE/TIME: 10/28/2016 02:15 UNIT: SED ROOM: STUDY DESCRIPTION: CT Cervical Spine Wo Cont Attending Physician: Khang Franklin M.D. Ordering Physician: Khang Franklin M.D. Primary Care Physician: Gaston Good M.D. MEDICAL IMAGING REPORT This report is preliminary unless electronic signature is present. EXAM Cervical spine CT 10/28/2016 0215 hours INDICATION Neck pain after falling and hitting top of head last night at 5 o'clock p.m. TECHNIQUE Axial images were obtained through the cervical spine without contrast. Multiplanar reformats were obtained. No comparison. This CT examination was performed with one or more of the following radiation dose reduction techniques: automatic exposure control, adjustment of mA and/or kV according to patient size, and iterative reconstruction. FINDINGS No fracture or malalignment is seen. No significant disc bulging or herniation identified. No central canal or neural foraminal narrowing is seen. IMPRESSION Cervical spine CT is negative. Please note that this patient has at least 91 prior CTs in our database since 2005. Dictated by... Gaston Mott Jr., M.D. THIS IS AN ELECTRONICALLY VERIFIED REPORT Gaston Mott Jr., M.D. at 10/28/2016 6:03 AM LEANDER/deepak TD: 10/28/2016 05:56 [facility] A Service [facility] RADIOLOGY TEXT RESULTS PATIENT: TANGELA AUSTIN LOCATION: SED : [birth year] UNIT #: [id number] AGE: [address]: Khang Franklin MD SEX: F ORDER DR: JOB #: [id number] MEDICAL IMAGING REPORT Page 1 of 1
[2016-10-28 02:19] LABS: BASOPHIL# 0.1 X10e3 (0-0.3); BASOPHIL% 1.3 % (0-2.5); EOSINOPHIL# 0.3 X10e3 (0-0.7); EOSINOPHIL% 3.5 % (0.0-7.0); HEMATOCRIT 34.5 % (35.0-45.0); HEMOGLOBIN 11.1 gm/dL (12.0-16.0); LYMPHOCYTE# 1.2 X10e3 (1.0-3.5); LYMPHOCYTE% 14.1 % (17.0-45.0); MEAN CELL VOLUME 82.4 FL (83-96); MEAN CORPUSCULAR HEMOGLOBIN 26.5 PG (28-34); MEAN CORPUSCULAR HGB CONC 32.1 g/dL (30-36); MONOCYTE# 0.7 X10e3 (0-1.0); MONOCYTE% 8.8 % (3.0-12.0); NEUTROPHIL# 6.2 X10e3 (1.5-7.1); NEUTROPHIL% 72.3 % (40-75); PLATELET COUNT 196 X10e3 (140-420); RED BLOOD COUNT 4.18 X10e (3.90-5.30); RED CELL DISTRIBUTION WIDTH 16.9 % (11.0-15.5); WHITE BLOOD COUNT 8.5 X10e3 (4.0-10.5)
[2016-10-28 02:20] LABS: DIFF IND NO
[2016-10-28 02:42] LABS: POC - CKMB <1.0 ng/mL (0.0-7.9); POC - TROPONIN <0.05 ng/mL (<=0.05)
[2016-10-28 02:45] LABS: CALCIUM SERUM 8.4 mg/dL (8.4-10.2); GLOM FILT RATE Estimated 65.2 mL/min (>60); POTASSIUM 3.8 mmol/L (3.5-5.1)
== END 2016-10-28 04:53 | disposition home or self-care (01) ==
LOC: SED 01:31
PROVIDERS: Emergency Medicine
DX: S09.90XA Unspecified injury of head, initial encounter (principal); R07.9 Chest pain, unspecified; I10 Essential (primary) hypertension; F17.200 Nicotine dependence, unspecified, uncomplicated; Z88.5 Allergy status to narcotic agent; Z88.8 Allergy status to other drugs, medicaments and biological substances; Z79.899 Other long term (current) drug therapy
CPT/HCPCS: 70450; 71275; 72125; 80048; 82553; 84484; 85025; 85379; 93005; 99284; J1642; Q9967

== ENCOUNTER 2016-11-04 01:02 | Emergency (ER) | payer OTHER | END 2016-11-04 01:50 | disposition home or self-care (01) | LOC: SED 01:02 | DX: K11.21 Acute sialoadenitis (principal); G43.909 Migraine, unspecified, not intractable, without status migrainosus; F17.200 Nicotine dependence, unspecified, uncomplicated; Z88.5 Allergy status to narcotic agent; Z91.030 Bee allergy status; Z88.8 Allergy status to other drugs, medicaments and biological substances; Z79.899 Other long term (current) drug therapy | CPT/HCPCS: 99282 ==

== ENCOUNTER 2017-02-16 16:27 | Emergency (ER) | payer MEDICARE, OTHER ==
[~2017-02-16] VITALS: Ht 160 cm; Wt 108.9 kg
== END 2017-02-16 17:30 | disposition left against medical advice (07) ==
LOC: CED 16:27
DX: I10 Essential (primary) hypertension (principal); R10.9 Unspecified abdominal pain; J44.9 Chronic obstructive pulmonary disease, unspecified; F17.210 Nicotine dependence, cigarettes, uncomplicated; Z88.5 Allergy status to narcotic agent; Z91.030 Bee allergy status; Z88.8 Allergy status to other drugs, medicaments and biological substances; Z79.899 Other long term (current) drug therapy
CPT/HCPCS: 36415; 99283